=== PATIENT | female | born 1990 | race American Indian/Alaskan Native ===

== ENCOUNTER 2022-01-21 00:31 | Emergency (ER) | payer OTHER ==
[2022-01-21 01:35] VITALS: BP 126/84
--- NOTE | 2022-01-21 03:26 | Emergency Department Report ---
ED Extremity Problem HPI - General Chief complaint: Extremity Injury, Upper Stated complaint: SORE FINGER Source: patient Mode of arrival: Ambulatory Limitations: No Limitations - History of Present Illness Initial comments: Patient is a 31-year-old -Stateless female with no past medical history who presents to the ED with complaint of acute onset persistent nontraumatic distal right index finger pain and swelling with mild erythematous rash for the last 12 hours. Patient states that the pain has been constant and persistent and that she is unable to perform any active range of motion of the right index finger. 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 Patient denies fever, chills, nausea and vomiting, traumatic injury, fall, heavy lifting, application of acrylic nails, numbness and tingling or weakness of right hand. MD Complaint: extremity pain (Distal right index finger pain and swelling), extremity swelling (Right index finger swelling and pain), other (Mild erythematous rash with swelling on distal right index finger) -: Sudden, hour(s) (12) Location: right, upper extremity (Right index finger pain and swelling) History of Same: No -: Yes arthralgia, No fever, No associated dyspnea, No associated chest pain Radiation: none Quality: aching, sharp Consistency: constant Improves with: nothing Worsens with: weight bearing, exertion, palpation Associated Symptoms: denies other symptoms, arthralgias (Distal right index finger pain and swelling), rash (Mild erythematous rash on distal right index finger with pain and swelling). denies: chest pain, shortness of breath, fever, myalgias - Related Data Previous Rx's Medication Instructions Recorded Last Taken Type Ibuprofen [Motrin] 600 mg PO Q8H PRN #30 tablet 01/21/22 Unknown Rx Sulfamethoxazole/Trimethoprim 1 each PO Q12H #20 tab 01/21/22 Unknown Rx [Bactrim DS TAB] traMADoL [Ultram] 50 mg PO Q6HR PRN #12 tablet 01/21/22 Unknown Rx ED Review of Systems ROS: Stated complaint: SORE FINGER Other details as noted in HPI Constitutional: denies: chills, fever Eyes: denies: eye pain, eye discharge, vision change ENT: denies: ear pain, throat pain Respiratory: denies: cough, shortness of breath, wheezing Cardiovascular: denies: chest pain, palpitations Endocrine: no symptoms reported Gastrointestinal: denies: abdominal pain, nausea, diarrhea Genitourinary: denies: urgency, dysuria, discharge Musculoskeletal: joint swelling (Distal right index finger), arthralgia (Distal right index finger pain and swelling with mild erythematous rash). denies: back pain Skin: rash (Mild erythematous rash on distal right index finger), change in color. denies: lesions Neurological: denies: headache, weakness, paresthesias Psychiatric: denies: anxiety, depression Hematological/Lymphatic: denies: easy bleeding, easy bruising ED Past Medical Hx - Medications Home Medications: Home Medications Medication Instructions Recorded Confirmed Last Taken Type Ibuprofen [Motrin] 600 mg PO Q8H PRN #30 tablet 01/21/22 Unknown Rx Sulfamethoxazole/Trimethoprim 1 each PO Q12H #20 tab 01/21/22 Unknown Rx [Bactrim DS TAB] traMADoL [Ultram] 50 mg PO Q6HR PRN #12 tablet 01/21/22 Unknown Rx ED Physical Exam - General Limitations: No Limitations General appearance: alert, in no apparent distress - Head Head exam: Present: atraumatic, normocephalic, normal inspection - Eye Eye exam: Present: normal appearance, PERRL, EOMI - ENT ENT exam: Present: normal exam, normal orophraynx, mucous membranes moist, TM's normal bilaterally, normal external ear exam - Neck Neck exam: Present: normal inspection, full ROM. Absent: tenderness - Respiratory Respiratory exam: Present: normal lung sounds bilaterally. Absent: respiratory distress, wheezes, rales, stridor, chest wall tenderness, accessory muscle use, decreased breath sounds - Cardiovascular Cardiovascular Exam: Present: regular rate, normal rhythm, normal heart sounds. Absent: systolic murmur, diastolic murmur, rubs, gallop - GI/Abdominal GI/Abdominal exam: Present: soft, normal bowel sounds. Absent: tenderness, guarding, rebound, hyperactive bowel sounds, hypoactive bowel sounds, mass - Extremities Exam Extremities exam: Present: normal inspection, full ROM, tenderness (Palpable distal right index finger tenderness with mild swelling), normal capillary refill, joint swelling (Distal right index finger swollen with localized tenderness). Absent: pedal edema, calf tenderness - Back Exam Back exam: Present: normal inspection, full ROM. Absent: tenderness, CVA tenderness (L), muscle spasm, paraspinal tenderness, vertebral tenderness - Neurological Exam Neurological exam: Present: alert, oriented X3, CN II-XII intact, normal gait, reflexes normal - Psychiatric Psychiatric exam: Present: normal affect, normal mood - Skin Skin exam: Present: warm, dry, intact, normal color, rash (Mild erythematous maculopapular nonfluctuant rash on distal right index finger with a localized tenderness), erythema ED Course Vital Signs 01/21/22 01:34 Temperature 98.3 F Pulse Rate 88 Respiratory 16 Rate Blood Pressure 126/84 [Right] O2 Sat by Pulse 98 Oximetry ED Medical Decision Making - Medical Decision Making This is a 31-year-old -Stateless female with no past medical history who presents to the ED with complaint of acute onset persistent nontraumatic distal right index finger pain and swelling with mild erythematous rash for the last 12 hours. Patient states that the pain has been constant and persistent and that she is unable to perform any active range of motion of the right index finger. 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 In the ED, patient is alert and oriented x3 and is not in any distress. Patient is hemodynamically stable. Patient was treated for pain in the ED. Patient was also given initial oral antibiotics Bactrim DS p.o. x1 in the ED. Patient symptoms are likely due to acute paronychia or cellulitis of distal right index finger. Patient was discharged home on pain medications and antibiotics and advised to follow-up with her primary care physician in 7 to 10 days for reevaluation or return to the ED immediately if symptoms get worse. - Differential Diagnosis Finger cellulitis; paronychia; folliculitis; Critical care attestation.: If time is entered above; I have spent that time in minutes in the direct care of this critically ill patient, excluding procedure time. ED Disposition Clinical Impression: Paronychia of right index finger, Cellulitis of right index finger Disposition: HOME / SELF CARE / HOMELESS Is pt being admited?: No Does the pt Need Aspirin: No Condition: Stable Instructions: Cellulitis, Adult, [id number], Paronychia, [id number] Additional Instructions: Your symptoms are likely due to infection in your distal right index finger. Therefore take medications with food, drink plenty of fluids, follow-up with your primary care physician in 7 to 10 days for reevaluation. Return to the ED immediately if symptoms get worse. Prescriptions: Sulfamethoxazole/Trimethoprim [Bactrim DS TAB] 1 each PO Q12H #20 tab Ibuprofen [Motrin] 600 mg PO Q8H PRN #30 tablet PRN Reason: Pain traMADoL [Ultram] 50 mg PO Q6HR PRN #12 tablet PRN Reason: Pain Referrals: [facility] [Provider Group] - 7-10 days Forms: Work/School Release Form(ED) Time of Disposition: 03:27 Print Language: [id number]
[2022-01-21] MEDS ORDERED: ONDANSETRON 4 MG ODT TAB PO ONE (04:11)
[2022-01-21] MEDS ORDERED: IBUPROFEN 600 MG TAB PO ONE (04:11)
[2022-01-21] MEDS ORDERED: SULFAMETHOXAZOLE/TRIMETHOPRIM 800/160MG DS TAB PO ONE (04:11)
[2022-01-21] MEDS ORDERED: HYDROcodone/ACETAMINOPHEN 5-325 MG TAB PO ONE (04:11)
== END 2022-01-21 03:58 | disposition home or self-care (01) ==
LOC: ED 00:31
DX: L03.011 Cellulitis of right finger (principal)
CPT/HCPCS: 99282; J3490; Q0162